=== PATIENT | female | born 1965 | race Hispanic/Latino ===

== ENCOUNTER 2021-10-07 15:46 | Outpatient (CLI) | payer BC | END 2021-10-07 15:47 | disposition home or self-care (01) | LOC: CSHMRI 15:46 | PROVIDERS: ATTEND Orthopaedic Surgery | DX: M25.512 Pain in left shoulder (principal); M75.122 Complete rotator cuff tear or rupture of left shoulder, not specified as traumatic; M75.22 Bicipital tendinitis, left shoulder; M24.212 Disorder of ligament, left shoulder ==